=== PATIENT | male | born 1985 | race Caucasian/White ===

== ENCOUNTER 2016-03-27 00:15 | Emergency (ER) | payer MEDICARE, MEDICAID ==
[2016-03-27 01:06] LABS: Bilirubin Negative (Negative); Blood, Urine Trace (Negative); Clarity Clear (Clear); Glucose, Urine (Dipstick) Negative (Negative); Leukocyte Negative (Negative); Nitrite Negative (Negative); Protein, Urine (Dipstick) Negative (Neg-Trace); Specific Gravity, Urine 1.015 (1.005-1.030); Urobilinogen 0.2 mg/dL (0.2-1.0)
[2016-03-27 01:09] LABS: Bacteria/HPF Rare-Few HPF (None Seen); Squamous Epithelial 0-3 HPF (0-3); WBC/HPF 0-3 HPF (0-3)
[2016-03-27] MEDS ORDERED: diphenhydrAMINE HCl 50 MG/ML 1 ML VIAL ONE (01:18)
[2016-03-27] MEDS ORDERED: Ondansetron HCl/PF 4 MG/2 ML Vial ONE (01:19)
[2016-03-27 01:55] LABS: #Basophils 0.1 thou/uL (0.0-0.2); #Eosinphils 0.3 thou/uL (0.0-0.7); #Lymphocytes 3.5 thou/uL (1.20-3.40); #Monocytes 0.7 thou/uL (0.11-0.59); #Neutrophils 6.7 thou/uL (1.40-6.50); %Eosinophils 3.1 % (0.0-10.0); %Lymphocytes 30.6 % (21.0-51.0); %Monocytes 6.3 % (0.0-10.0); %Neutrophils 59.1 % (42.0-75.0); Hemoglobin 15.3 g/dL (14.0-18.0); Mean Corpuscular HGB CONC 34.5 g/dL (32.0-36.0); Mean Corpuscular Hemoglobin 31.1 pg (27.0-31.0); Mean Corpuscular Volume 90.3 fl (80.0-94.0); Mean Platelet Volume 8.1 fL (7.4-10.4); Platelet Count 311 thou/uL (130-400); RBC Distribution Width 13.3 % (11.5-14.5); White Blood Cell (WBC) Count 11.4 thou/uL (4.8-10.8)
[2016-03-27 02:06] LABS: ALT (SGPT) 21 U/L (0-55); AST (SGOT) 15 U/L (5-34); Albumin 4.2 g/dL (3.5-5.0); Alkaline Phosphatase 57 U/L (40-150); Amylase 31 U/L (25-125); Anion Gap 16 mmol/L (10-20); BUN (Urea Nitrogen) 10 mg/dL (8.9-20.6); Bilirubin, Total 0.3 mg/dL (0.2-1.2); Calc. Creatinine Clearance 0 mL/min (70-130); Calcium 9.6 mg/dL (7.8-10.44); Carbon Dioxide 24 mmol/L (22-29); Chloride 100 mmol/L (98-107); Estimated GFR-MDRD Greater than 90; Globulin 2.8 g/dL (2.4-3.5); Glucose 98 mg/dL (70-105); Lipase 17 U/L (8-78); Potassium 3.9 mmol/L (3.5-5.1); Sodium 136 mmol/L (136-145)
[2016-03-27] MEDS ORDERED: HYDROcodone/Acetaminophen 10/325 mg Tablet ONE (03:09)
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
--- NOTE | 2016-03-27 04:15 | PICIS ---
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 Tennille, [place]. MD Tennille, [place]. Faria: AGARubi=JANICE Caballero, Joshua LLDO=MD Null Lloyd MCRS=JANICE Monson, Rizwan &a-1R&a+25V*p+0X*u6999W*c202B*c15G*c2P*p-0X&a-25V&a+1R Name: Robert Alvarez : 1985 M30 MedRec: [id number] AcctNum: [id number] Prepared: WedMar 27, 2016 06:17 by Interface Page 10 of 10 pMD [facility] MEDICATION RECONCILIATION You were seen in the Emergency Department on: WedMar 27, 2016 KNOWN ALLERGIES morphine: Reaction: Hives morphine (bulk) (Unconfirmed) MEDICATIONS GIVEN WHILE IN THE EMERGENCY DEPARTMENT Duramorph (PF) (morphine sulfate/preservative free) - Dose: 4 milligram(s) : IV Push Zofran ODT (ondansetron) - Dose: 8 milligram(s) : IV Push Benadryl injection (diphenhydramine HCl) - Dose: 25 milligram(s) : IV Push [place] (hydrocodone bitartrate/acetaminophen) - Dose: 10-325 milligram(s) : Oral HOME MEDICATIONS CONTINUE PRESCRIBED amitriptyline : TABLET : Strength - 25 mg : ORAL Continue as prescribed Patient had been takin mg Oral once a day (at bedtime). gabapentin : CAPSULE : Strength - 300 mg : ORAL Continue as prescribed Patient had been takin mg Oral 3 times a day. Paxil : TABLET : Strength - 20 mg : ORAL Continue as prescribed Patient had been takin mg Oral once a day (in the morning). Notes from the emergency department Reviewed with patient &a-1R&a+25V*p+0X*s6204C*c202B*c15G*c2P*p-0X&a-25V&a+1R Name: Robert Alvarez : 1985 M30 MedRec: [id number] AcctNum: [id number] Prepared: WedMar 27, 2016 06:17 by Interface pMD CRIS
--- NOTE | 2016-03-27 09:14 | CT ---
PRELIMINARY REPORT/[facility]/EMERGENCY AFTER HOURS PROCEDURE: EXAM: CT Abdomen and Pelvis With Intravenous Contrast. CLINICAL HISTORY: 30 years old, male; Pain; Abdominal pain; Generalized; Patient HX: N/v/d; TECHNIQUE: Axial computed tomography images of the abdomen and pelvis with intravenous contrast. CONTRAST: 94 mL of isovue 370 administered intravenously. COMPARISON: No relevant prior studies available. FINDINGS: Lower thorax: No acute findings. ABDOMEN: Liver: Unremarkable. No mass. Gallbladder and bile ducts: Unremarkable. No calcified stones. No ductal dilation. Pancreas: Unremarkable. No mass. No ductal dilation. Spleen: Unremarkable. No splenomegaly. Adrenals: Unremarkable. No mass. Kidneys and ureters: Unremarkable. No solid mass. No hydronephrosis. Stomach and bowel: Unremarkable. No obstruction. No mucosal thickening. Appendix: Normal appendix. PELVIS: Bladder: Unremarkable. No mass. Reproductive: Unremarkable as visualized. ABDOMEN and PELVIS: Intraperitoneal space: Unremarkable. No free air. No significant fluid collection. Bones/joints: No acute fracture. No dislocation. Soft tissues: Unremarkable. Vasculature: IVC filter present. No abdominal aortic aneurysm. Lymph nodes: Unremarkable. No enlarged lymph nodes. IMPRESSION: No acute findings. Thank you for allowing us to participate in the care of your patient. Dictated and Authenticated by: Ismael Lopez MD 03/27/2016 3:33 AM Central Time ([place] \T\ [place]) FINAL REPORT EXAM: ABDOMEN CT WITH CONTRAST PELVIC CT WITH CONTRAST: HISTORY: Left lower quadrant pain. Diarrhea. COMPARISON: None. TECHNIQUE: And abdomen and pelvic CT are performed with IV and oral contrast. Coronal reformatted images are s ubmitted for interpretation. FINDINGS/IMPRESSION: This report is essentially in agreement with the preliminary report by [facility]. There are calcification s in the right hepatic lobe which may represent a hepatic coil mass. IVC filter is noted. There is nonobstructing calcification in the upper pole of the left kidney, measuring 0.4 cm. There is no a cute abnormality within the abdomen or pelvis. Mild mucosal prominence of the urinary bladder is no nspecific and may be due to inadequate distention. If there is concern for possible cystitis, corre late clinically. CODE T POS: [facility]
[2016-03-27] MEDS ORDERED: Iopamidol 370 76% 100 ML VIAL ONE (13:19)
== END 2016-03-27 06:05 | disposition home or self-care (01) ==
LOC: MADERS 00:15
DX: R10.9 Unspecified abdominal pain (principal); F41.9 Anxiety disorder, unspecified; F31.9 Bipolar disorder, unspecified; F17.210 Nicotine dependence, cigarettes, uncomplicated
CPT/HCPCS: 74177; 80053; 81003; 81015; 82150; 83690; 85025; 87086; 96374; 96375; J1200; J2270; J2405

== ENCOUNTER 2016-03-28 01:08 | Emergency (ER) | payer MEDICARE, MEDICAID ==
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
== END 2016-03-28 02:24 | disposition home or self-care (01) ==
LOC: MADERS 01:08
DX: T39.311A Poisoning by propionic acid derivatives, accidental (unintentional), initial encounter (principal); M79.605 Pain in left leg; M79.604 Pain in right leg; Z79.899 Other long term (current) drug therapy; Z86.718 Personal history of other venous thrombosis and embolism; F41.9 Anxiety disorder, unspecified; F31.9 Bipolar disorder, unspecified; F17.210 Nicotine dependence, cigarettes, uncomplicated
CPT/HCPCS: 99284